=== PATIENT | male | born 1950 | race Caucasian/White ===

== ENCOUNTER 2016-08-18 19:28 | Emergency (ER) | payer OTHER ==
--- NOTE | 2016-08-18 20:59 | ED ORDER SUMMARY ---
..... Patient: CODY LOOMIS OrderSheet [facility] VisitID: [id number] [address] [place] [address] 66y, M Registration Date/Time: 08/18/2016 ORDER SHEET Weight: 92.9 kg (stated) Allergies: No Known Drug Allergy GENERAL ORDERS: CBC w Diff Urgent (19:47 08/18/2016 DDean R.N. per protocol) (19:53 ALawrence ER Tech1) UA-Culture if indicated Urgent (19:47 08/18/2016 DDean R.N. per protocol) (Ack 19:53 ALawrence ER Tech1) (20:21 DDean R.N.) CMP Urgent (19:47 08/18/2016 DDean R.N. per protocol) (19:53 ALawrence ER Tech1) US Abdomen Complete (No) Urgent (19:51 08/18/2016 HBivens A.R.N.P.) (Ack 20:00 CHagerty ER S3B Multi Sensor Operator) (Cancelled: Wrong Order20:20 NHouse ER Tech1) US Abdomen Limited (No) Urgent (20:19 08/18/2016 NHouse ER Tech1 verbal order read back to HBivens A.R.N.P.) (Ack 20:20 CHagerty ER S3B Multi Sensor Operator) (20:39 CHagerty ER S3B Multi Sensor Operator) MEDICATION ORDERS: IV FLUIDS: IV Saline Lock (19:47 08/18/2016 DDean R.N. per protocol) (19:47 DDean R.N.) ORDER SHEET NOTES: [Electronically signed by Lalita Szymanski R.N. (21:23 08/18/2016)] [Electronically signed by Erika LawR.N.P. (21:41 08/18/2016)] [Electronically locked/signed by Lalita Szymanski R.N. (21:23 08/18/2016)]
--- NOTE | 2016-08-18 20:59 | ED ORDER SUMMARY ---
..... Patient: CODY LOOMIS OrderSheet [facility] VisitID: [id number] [address] [place] [address] 66y, M Registration Date/Time: 08/18/2016 ORDER SHEET Weight: 92.9 kg (stated) Allergies: No Known Drug Allergy GENERAL ORDERS: CBC w Diff Urgent (19:47 08/18/2016 DDean R.N. per protocol) (19:53 ALawrence ER Tech1) UA-Culture if indicated Urgent (19:47 08/18/2016 DDean R.N. per protocol) (Ack 19:53 ALawrence ER Tech1) (20:21 DDean R.N.) CMP Urgent (19:47 08/18/2016 DDean R.N. per protocol) (19:53 ALawrence ER Tech1) US Abdomen Complete (No) Urgent (19:51 08/18/2016 HBivens A.R.N.P.) (Ack 20:00 CHagerty ER Mushroom Growing Supervisor) (Cancelled: Wrong Order20:20 NHouse ER Tech1) US Abdomen Limited (No) Urgent (20:19 08/18/2016 NHouse ER Tech1 verbal order read back to HBivens A.R.N.P.) (Ack 20:20 CHagerty ER Mushroom Growing Supervisor) (20:39 CHagerty ER Mushroom Growing Supervisor) MEDICATION ORDERS: IV FLUIDS: IV Saline Lock (19:47 08/18/2016 DDean R.N. per protocol) (19:47 DDean R.N.) ORDER SHEET NOTES: [Electronically signed by Lalita Szymanski R.N. (21:23 08/18/2016)] [Electronically signed by Erika LawR.N.P. (21:41 08/18/2016)] [Electronically locked/signed by Lalita Szymanski R.N. (21:23 08/18/2016)]
--- NOTE | 2016-08-18 20:59 | ED CLINICAL REPORT ---
Clinical Report - Physicians/Mid Levels [facility] [address] [place] [address] 08/18/2016 19:30 Patient: CODY LOOMIS Time Seen: 19:42; upon arrival, initial patient contact, initial documentation, patient care assumed. Arrived- By private vehicle. Historian- patient. HISTORY OF PRESENT ILLNESS Chief Complaint: ABDOMINAL PAIN. At its maximum, severity described as moderate. When seen in the E.D., severity described as moderate. Modifying factors- worsened by cough. Not relieved by anything. This started 7 - 8 years ago and is still present (worse since yesterday). It is described as "pain". No radiation. It is described as located in the periumbilical area. No nausea, loss of appetite, vomiting or diarrhea. No additional abdominal pain. (coughing yesterday and the hernia got worse, lump is bigger and hurts more, relieved with abd banding). No recent travel. Similar symptoms previously: Chronically, milder. Recent medical care: Not recently seen/assessed. REVIEW OF SYSTEMS No constipation, black stools, hematemesis, difficulty with urination or pain with urination. No urinary frequency, bloody stools, fever, chest pain or difficulty breathing. All systems otherwise negative, except as recorded above. PAST HISTORY See nurses notes. PROBLEMS: High cholesterol . HTN. Asthma. Acid reflux. --19:40 Lalita Szymanski, R.N. ADDITIONAL SURGERIES: Tonsillectomy. --19:40 Lalita Szymanski, R.N. SOCIAL HISTORY No recent travel. Is a local resident. FAMILY HISTORY Negative. ADDITIONAL NOTES The nursing notes have been reviewed with agreement regarding the chief complaint, HPI, ROS, PMH and patient medications and allergies. PHYSICAL EXAM Vital Signs: 08/18/2016 19:32 BP: 147/93. HR: 106. RR: 20. O2 saturation: 100%. Temp: 98.1 F. Pain level now: 2/10. Have been reviewed as abnormal and appear to be correct. Hypertensive. Tachycardic. Respiratory rate normal. Temperature normal. Oxygen saturation normal. Appearance: Alert. Oriented X3. No acute distress. Eyes: Pupils equal, round and reactive to light. Eyes normal inspection. Neck: Normal inspection. Neck supple. CVS: Normal heart rate and rhythm. Heart sounds normal. Pulses normal. Respiratory: No respiratory distress. Breath sounds normal. Chest nontender. Abdomen: Soft and nontender. Bowel sounds normal. No organomegaly. Small, tender mass present in the periumbilical area. No pulsatile mass present. No guarding present. Mass present. Back: Normal inspection. Skin: Skin warm and dry. Normal skin color. No rash. Normal skin turgor. Extremities: Extremities exhibit normal ROM. No lower extremity edema. Neuro: Oriented X 3. No motor deficit. No sensory deficit. LABS, X-RAYS, AND EKG Pelvic Sonogram: . 2.4cm hernia, does not reduce, verbal report from about.me. The study was discussed with the radiologist. Interpretation time: 20:39. Laboratory Tests: UA-Culture if indicated: (ROSALEE: 08/18/2016 20:15) ( [facility] 08/18/2016 20:52) Final results Test Result Flag Units (Reference) URINE COLOR YELLOW URINE APPEARANCE CLEAR URINE GLUCOSE NEGATIVE (NEGATIVE) URINE BILIRUBIN NEGATIVE (NEGATIVE) URINE KETONE NEGATIVE (NEGATIVE) URINE SPECIFIC GRAVITY 1.015 (1.010-1.030) URINE PH 6.0 (5.0-8.0) URINE PROTEIN NEGATIVE (NEGATIVE) URINE UROBILINOGEN 0.2 EU/dL (0.2-1.0) URINE NITRITE NEGATIVE (NEGATIVE) URINE BLOOD 1+ (NEGATIVE) URINE LEUK ESTERASE NEGATIVE (NEGATIVE) URINE RBC 1-3 rbc/hpf (0-1) URINE WBC NONE SEEN wbc/hpf (0-1) URINE EPITHELIAL CELLS RARE EPI/hpf (0-5) URINE BACTERIA NONE SEEN (NONE SEEN) URINE COMMENT CULT NOT INDICATED 1+MUCUSURINE CULTURES ARE SET-UP BASED ON THE FOLLOWING CRITERIA:POSITIVE NITRITEPOSITIVE LEUKOCYTE ESTERASEGREATER THAN 10 WHITE BLOOD CELLSMODERATE (2+) OR GREATER BACTERIA CBC w Diff: (ROSALEE: 08/18/2016 19:45) ( [facility] 08/18/2016 20:13) Final results Test Result Flag Units (Reference) WHITE BLOOD COUNT 12.4 H K/uL (4.5-11.5) RED BLOOD COUNT 5.47 M/uL (4.50-5.90) HEMOGLOBIN 16.2 gm/dL (13.5-17.5) HEMATOCRIT 49.2 % (41.0-53.0) MEAN CELL VOLUME 90 fL (80-100) MEAN CORPUSCULAR HGB 30 pg (26-34) MEAN CORPUSCULAR HGB CONC 33 g/dL (31-37) RED CELL DISTRIBUTION WIDTH 13.4 % (11.6-14.8) PLATELET COUNT 186 K/uL (150-400) NEUTROPHIL % 77.0 H % (50-75) LYMPH % 14.8 L % (25-40) MONO % 7.6 % (3-14) EOSINOPHIL % 0.3 % (0-4) BASOPHIL % 0.3 % (0-2) CMP: (ROSALEE: 08/18/2016 19:45) ( MsgRcvd 08/18/2016 20:08) Final results Test Result Flag Units (Reference) GLUCOSE 117 H mg/dL (70-110) BUN 15 mg/dL (7-18) CREATININE 1.4 H mg/dL (0.6-1.3) Estimated GFR 54.23 mL/min Estimated GFR- >60 mL/min Note: Persistent reduction over 3 months in eGFR<60 mL/min/1.73 m2 defines CKD. Patients with eGFR values>=60 mL/min/1.73 m2 may also have CKD if evidence ofpersistent proteinuria. Additional information may be foundat www.kidney.org. SODIUM 138 mmol/L (136-145) POTASSIUM 4.0 mmol/L (3.5-5.1) CHLORIDE 101 mmol/L (98-107) CARBON DIOXIDE 28 mmol/L (21-32) CALCIUM 9.4 mg/dL (8.5-10.1) TOTAL PROTEIN 8.0 g/dL (6.4-8.2) ALBUMIN 4.0 g/dL (3.3-5.0) BILIRUBIN, TOTAL 1.1 H mg/dL (0.0-1.0) ALKALINE PHOSPHATASE 69 U/L (46-116) AST (SGOT) 18 U/L (15-37) ALT (SGPT) 38 U/L (12-78) . PROGRESS AND PROCEDURES Course of Care: 21:40 08/18/16. us results discussed, and dc plan with dr craig. Patient counseled in person regarding the patient's stable condition, test results and diagnosis. 20:52. Differential Diagnosis: I considered hernia as a possible cause of abdominal pain in this patient. This is a partial list of diagnoses considered. (incarerated hernia). Above considerations are based on history, physical exam, laboratory data and other information. Differential diagnosis was discussed with patient. Disposition: Discharged home in good and improved condition (20:59). Condition: good and stable. CLINICAL IMPRESSION Recurrent umbilical hernia. No reducible hernia, incarcerated hernia, obstruction or gangrene. INSTRUCTIONS Warnings: GENERAL WARNINGS: Return or contact your physician immediately if your condition worsens or changes unexpectedly, if not improving as expected, or if other problems arise. SPECIFICALLY, return if you develop pain in the abdomen, fever, the inability to keep fluids down, blood in vomitus, blood in diarrhea, fainting or lightheadedness. Follow-up: Follow up with your doctor in about two days even if well. Call for an appointment. Summary of care provided to patient. Screening today revealed the patient's blood pressure to be in the hypertensive range. The patient should follow up with a primary care provider for blood pressure management. Understanding of the discharge instructions verbalized by patient. Follow-up with: Dimitri Daily MD, General Surgeon, , [facility], [address] [place] [address] Follow up in about two days as needed. Call for an appointment. Summary of care provided to patient. (Electronically signed by Erika Law A.R.N.P. 08/18/2016 21:41)
--- NOTE | 2016-08-18 20:59 | ED NURSING NOTES ---
Clinical Report - Nurses [facility] [address] [place] [address] 08/18/2016 19:30 Patient: CODY LOOMIS TRIAGE Triage time 1935. Acuity: LEVEL 3. Chief Complaint: ABDOMINAL PAIN. ( last po 1630). --19:43 Lalita Szymanski R.N. 19:32 08/18/16. BP: 147/93. HR: 106. RR: 20. O2 saturation: 100%. Temp: 98.1 F. Pain level now: 07/26. Additional comments: 2 standing, 7 if bending over . --19:43 Lalita Szymanski R.N. Weight: 92.9 kg stated. Height/Length: 68 inches Per Patient. BMI: 31.1. --19:38 Lalita Szymanski R.N. Medications Lisinopril Oral 5 mg, daily. --19:41 Lalita Szymanski R.N. Atorvastatin Calcium Oral 5mg, daily. Omeprazole Oral 20 mg, daily. --19:41 Lalita Szymanski R.N. Nightquel last night . --19:42 Lalita Szymanski R.N. Allergies No Known Drug Allergy. --19:41 Lalita Szymanski R.N. History Arrived by private vehicle. Historian: patient. Accompanied by daughter. Primary physician (samy). The patient has had abdominal pain. No nausea, vomiting, diarrhea or constipation. SOCIAL HX: Alcohol use. (quit 20 years ago). --19:43 Lalita Szymanski R.N. ( pt states that he coughing vigorously and felt "a pop" in abd by umbilicus. has bulging area visable). --19:46 Lalita Szymanski R.N. PROBLEMS: High cholesterol . HTN. Asthma. Acid reflux. --19:40 Lalita Szymanski R.N. ADDITIONAL SURGERIES: Tonsillectomy. --19:40 Lalita Szymanski R.N. Interventions ID band on patient. To treatment room. --19:43 Lalita Szymanski R.N. PHYSICAL ASSESSMENT 19:35. Ambulatory to room. Patient gowned. GENERAL / NEURO / PSYCH: Alert. Oriented X 4. Appears in no acute distress. HEENT: Mucous membranes are pink. RESPIRATORY: Respirations not labored. CVS: Capillary refill less than 2 seconds. GI / : ( had umbilical hernia pop out 2 days ago when he was coughing vigorously). SKIN: Skin is warm and dry. --19:45 Lalita Szymanski R.N. NURSING PROGRESS NOTES 19:35. Patient gowned. Head of bed elevated. Reassurance given. Patient identifiers checked. Call light placed in reach. Side rails up. Bed placed in lowest position. Patient ready for evaluation- chart flagged. --19:44 Lalita Szymanski R.N. 19:44 08/18/2016 Site #1 started via IV in the left antecubital space with an 20g angiocath, with aseptic technique and good blood return; one attempt. Blood drawn: rainbow set. Labeled in the presence of the patient and sent to the lab (drawn by DAVDIE Ashton). --19:44 Lalita Szymanski R.N. 20:15. Patient ID band checked for patient name and birthdate: patient confirmed. Clean catch urine collected with return of yellow-colored clear urine; sample sent to lab for urinalysis and culture. Specimen labeled in the presence of the patient. --20:22 Lalita Szymanski R.N. 20:15. ( Pt informed that we are waiting on US to arrive at 2030. Pt in no acute distress, playing game on phone). --20:23 Lalita Szymanski R.N. 20:30. ( US at bedside doing exam). --20:35 Lalita Szymanski R.N. 21:00 08/18/2016 Site #1 removed upon discharge. Bandaid applied. --21:22 Lalita Szymanski R.N. 21:00 08/18/2016 IV Saline Lock Drip IV Discontinued: bag #1 STOPPED upon discharge. Total amount infused: 0 mL. IV patency established. IV site checked: no pain, redness, or swelling. IV flushed thoroughly. --21:22 Lalita Szymanski R.N. DISPOSITION / DISCHARGE 21:05. Condition at departure: improved and stable. No learning barriers present. Discharge instructions provided and reviewed with the patient. Reviewed medication(s) (continue home meds). Reviewed referrals (Dr. Daily). Patient verbalized understanding. Written instructions provided in Faroese. The patient was discharged home and accompanied by family. He left the Emergency Department ambulatory and via private vehicle. Driving (daughter). --21:20 Lalita Szmyanski R.N. 21:05 08/18/16. BP: 121/80. HR: 94. RR: 18. O2 saturation: 97%. Temp: deferred. Pain level now: 07/26. --21:20 Lalita Szymanski R.N. Locked/Released at 08/18/2016 21:23 by Lalita Szymanski R.N.
--- NOTE | 2016-08-18 20:59 | ED NURSING NOTES ---
Clinical Report - Nurses [facility] [address] [place] [address] 08/18/2016 19:30 Patient: CODY LOOMIS TRIAGE Triage time 1935. Acuity: LEVEL 3. Chief Complaint: ABDOMINAL PAIN. ( last po 1630). --19:43 Lalita Szymanski R.N. 19:32 08/18/16. BP: 147/93. HR: 106. RR: 20. O2 saturation: 100%. Temp: 98.1 F. Pain level now: 07/26. Additional comments: 2 standing, 7 if bending over . --19:43 Lalita Szymanski R.N. Weight: 92.9 kg stated. Height/Length: 68 inches Per Patient. BMI: 31.1. --19:38 Lalita Szymanski R.N. Medications Lisinopril Oral 5 mg, daily. --19:41 Lalita Szymanski R.N. Atorvastatin Calcium Oral 5mg, daily. Omeprazole Oral 20 mg, daily. --19:41 Lalita Szymanski R.N. Nightquel last night . --19:42 Lalita Szymanski R.N. Allergies No Known Drug Allergy. --19:41 Lalita Szymanski R.N. History Arrived by private vehicle. Historian: patient. Accompanied by daughter. Primary physician (samy). The patient has had abdominal pain. No nausea, vomiting, diarrhea or constipation. SOCIAL HX: Alcohol use. (quit 20 years ago). --19:43 Lalita Szymanski R.N. ( pt states that he coughing vigorously and felt "a pop" in abd by umbilicus. has bulging area visable). --19:46 Lalita Szymanski R.N. PROBLEMS: High cholesterol . HTN. Asthma. Acid reflux. --19:40 Lalita Szymanski R.N. ADDITIONAL SURGERIES: Tonsillectomy. --19:40 Lalita Szymanski R.N. Interventions ID band on patient. To treatment room. --19:43 Lalita Szymanski R.N. PHYSICAL ASSESSMENT 19:35. Ambulatory to room. Patient gowned. GENERAL / NEURO / PSYCH: Alert. Oriented X 4. Appears in no acute distress. HEENT: Mucous membranes are pink. RESPIRATORY: Respirations not labored. CVS: Capillary refill less than 2 seconds. GI / : ( had umbilical hernia pop out 2 days ago when he was coughing vigorously). SKIN: Skin is warm and dry. --19:45 Lalita Szymanski R.N. NURSING PROGRESS NOTES 19:35. Patient gowned. Head of bed elevated. Reassurance given. Patient identifiers checked. Call light placed in reach. Side rails up. Bed placed in lowest position. Patient ready for evaluation- chart flagged. --19:44 Lalita Szymanski R.N. 19:44 08/18/2016 Site #1 started via IV in the left antecubital space with an 20g angiocath, with aseptic technique and good blood return; one attempt. Blood drawn: rainbow set. Labeled in the presence of the patient and sent to the lab (drawn by DAVIDE Ashton). --19:44 Lalita Szymanski R.N. 20:15. Patient ID band checked for patient name and birthdate: patient confirmed. Clean catch urine collected with return of yellow-colored clear urine; sample sent to lab for urinalysis and culture. Specimen labeled in the presence of the patient. --20:22 Lalita Szymanski R.N. 20:15. ( Pt informed that we are waiting on US to arrive at 2030. Pt in no acute distress, playing game on phone). --20:23 Lalita Szymanski R.N. 20:30. ( US at bedside doing exam). --20:35 Lalita Szymanski R.N. 21:00 08/18/2016 Site #1 removed upon discharge. Bandaid applied. --21:22 Lalita Szymanski R.N. 21:00 08/18/2016 IV Saline Lock Drip IV Discontinued: bag #1 STOPPED upon discharge. Total amount infused: 0 mL. IV patency established. IV site checked: no pain, redness, or swelling. IV flushed thoroughly. --21:22 Lalita Szymanski R.N. DISPOSITION / DISCHARGE 21:05. Condition at departure: improved and stable. No learning barriers present. Discharge instructions provided and reviewed with the patient. Reviewed medication(s) (continue home meds). Reviewed referrals (Dr. Daily). Patient verbalized understanding. Written instructions provided in Upper Sorbian. The patient was discharged home and accompanied by family. He left the Emergency Department ambulatory and via private vehicle. Driving (daughter). --21:20 Lalita Szymanski R.N. 21:05 08/18/16. BP: 121/80. HR: 94. RR: 18. O2 saturation: 97%. Temp: deferred. Pain level now: 07/26. --21:20 Lalita Szymanski R.N. Locked/Released at 08/18/2016 21:23 by Lalita Szymanski R.N.
--- NOTE | 2016-08-18 20:59 | ED CLINICAL REPORT ---
Clinical Report - Physicians/Mid Levels [facility] [address] [place] [address] 08/18/2016 19:30 Patient: CODY LOOMIS Time Seen: 19:42; upon arrival, initial patient contact, initial documentation, patient care assumed. Arrived- By private vehicle. Historian- patient. HISTORY OF PRESENT ILLNESS Chief Complaint: ABDOMINAL PAIN. At its maximum, severity described as moderate. When seen in the E.D., severity described as moderate. Modifying factors- worsened by cough. Not relieved by anything. This started 7 - 8 years ago and is still present (worse since yesterday). It is described as "pain". No radiation. It is described as located in the periumbilical area. No nausea, loss of appetite, vomiting or diarrhea. No additional abdominal pain. (coughing yesterday and the hernia got worse, lump is bigger and hurts more, relieved with abd banding). No recent travel. Similar symptoms previously: Chronically, milder. Recent medical care: Not recently seen/assessed. REVIEW OF SYSTEMS No constipation, black stools, hematemesis, difficulty with urination or pain with urination. No urinary frequency, bloody stools, fever, chest pain or difficulty breathing. All systems otherwise negative, except as recorded above. PAST HISTORY See nurses notes. PROBLEMS: High cholesterol . HTN. Asthma. Acid reflux. --19:40 Lalita Szymanski, R.N. ADDITIONAL SURGERIES: Tonsillectomy. --19:40 Lalita Szymanski, R.N. SOCIAL HISTORY No recent travel. Is a local resident. FAMILY HISTORY Negative. ADDITIONAL NOTES The nursing notes have been reviewed with agreement regarding the chief complaint, HPI, ROS, PMH and patient medications and allergies. PHYSICAL EXAM Vital Signs: 08/18/2016 19:32 BP: 147/93. HR: 106. RR: 20. O2 saturation: 100%. Temp: 98.1 F. Pain level now: 2/10. Have been reviewed as abnormal and appear to be correct. Hypertensive. Tachycardic. Respiratory rate normal. Temperature normal. Oxygen saturation normal. Appearance: Alert. Oriented X3. No acute distress. Eyes: Pupils equal, round and reactive to light. Eyes normal inspection. Neck: Normal inspection. Neck supple. CVS: Normal heart rate and rhythm. Heart sounds normal. Pulses normal. Respiratory: No respiratory distress. Breath sounds normal. Chest nontender. Abdomen: Soft and nontender. Bowel sounds normal. No organomegaly. Small, tender mass present in the periumbilical area. No pulsatile mass present. No guarding present. Mass present. Back: Normal inspection. Skin: Skin warm and dry. Normal skin color. No rash. Normal skin turgor. Extremities: Extremities exhibit normal ROM. No lower extremity edema. Neuro: Oriented X 3. No motor deficit. No sensory deficit. LABS, X-RAYS, AND EKG Pelvic Sonogram: . 2.4cm hernia, does not reduce, verbal report from [facility]. The study was discussed with the radiologist. Interpretation time: 20:39. Laboratory Tests: UA-Culture if indicated: (ROSALEE: 08/18/2016 20:15) ( [facility] 08/18/2016 20:52) Final results Test Result Flag Units (Reference) URINE COLOR YELLOW URINE APPEARANCE CLEAR URINE GLUCOSE NEGATIVE (NEGATIVE) URINE BILIRUBIN NEGATIVE (NEGATIVE) URINE KETONE NEGATIVE (NEGATIVE) URINE SPECIFIC GRAVITY 1.015 (1.010-1.030) URINE PH 6.0 (5.0-8.0) URINE PROTEIN NEGATIVE (NEGATIVE) URINE UROBILINOGEN 0.2 EU/dL (0.2-1.0) URINE NITRITE NEGATIVE (NEGATIVE) URINE BLOOD 1+ (NEGATIVE) URINE LEUK ESTERASE NEGATIVE (NEGATIVE) URINE RBC 1-3 rbc/hpf (0-1) URINE WBC NONE SEEN wbc/hpf (0-1) URINE EPITHELIAL CELLS RARE EPI/hpf (0-5) URINE BACTERIA NONE SEEN (NONE SEEN) URINE COMMENT CULT NOT INDICATED 1+MUCUSURINE CULTURES ARE SET-UP BASED ON THE FOLLOWING CRITERIA:POSITIVE NITRITEPOSITIVE LEUKOCYTE ESTERASEGREATER THAN 10 WHITE BLOOD CELLSMODERATE (2+) OR GREATER BACTERIA CBC w Diff: (ROSALEE: 08/18/2016 19:45) ( [facility] 08/18/2016 20:13) Final results Test Result Flag Units (Reference) WHITE BLOOD COUNT 12.4 H K/uL (4.5-11.5) RED BLOOD COUNT 5.47 M/uL (4.50-5.90) HEMOGLOBIN 16.2 gm/dL (13.5-17.5) HEMATOCRIT 49.2 % (41.0-53.0) MEAN CELL VOLUME 90 fL (80-100) MEAN CORPUSCULAR HGB 30 pg (26-34) MEAN CORPUSCULAR HGB CONC 33 g/dL (31-37) RED CELL DISTRIBUTION WIDTH 13.4 % (11.6-14.8) PLATELET COUNT 186 K/uL (150-400) NEUTROPHIL % 77.0 H % (50-75) LYMPH % 14.8 L % (25-40) MONO % 7.6 % (3-14) EOSINOPHIL % 0.3 % (0-4) BASOPHIL % 0.3 % (0-2) CMP: (ROSALEE: 08/18/2016 19:45) ( MsgRcvd 08/18/2016 20:08) Final results Test Result Flag Units (Reference) GLUCOSE 117 H mg/dL (70-110) BUN 15 mg/dL (7-18) CREATININE 1.4 H mg/dL (0.6-1.3) Estimated GFR 54.23 mL/min Estimated GFR- >60 mL/min Note: Persistent reduction over 3 months in eGFR<60 mL/min/1.73 m2 defines CKD. Patients with eGFR values>=60 mL/min/1.73 m2 may also have CKD if evidence ofpersistent proteinuria. Additional information may be foundat www.[email or web address].org. SODIUM 138 mmol/L (136-145) POTASSIUM 4.0 mmol/L (3.5-5.1) CHLORIDE 101 mmol/L (98-107) CARBON DIOXIDE 28 mmol/L (21-32) CALCIUM 9.4 mg/dL (8.5-10.1) TOTAL PROTEIN 8.0 g/dL (6.4-8.2) ALBUMIN 4.0 g/dL (3.3-5.0) BILIRUBIN, TOTAL 1.1 H mg/dL (0.0-1.0) ALKALINE PHOSPHATASE 69 U/L (46-116) AST (SGOT) 18 U/L (15-37) ALT (SGPT) 38 U/L (12-78) . PROGRESS AND PROCEDURES Course of Care: 21:40 08/18/16. us results discussed, and dc plan with dr craig. Patient counseled in person regarding the patient's stable condition, test results and diagnosis. 20:52. Differential Diagnosis: I considered hernia as a possible cause of abdominal pain in this patient. This is a partial list of diagnoses considered. (incarerated hernia). Above considerations are based on history, physical exam, laboratory data and other information. Differential diagnosis was discussed with patient. Disposition: Discharged home in good and improved condition (20:59). Condition: good and stable. CLINICAL IMPRESSION Recurrent umbilical hernia. No reducible hernia, incarcerated hernia, obstruction or gangrene. INSTRUCTIONS Warnings: GENERAL WARNINGS: Return or contact your physician immediately if your condition worsens or changes unexpectedly, if not improving as expected, or if other problems arise. SPECIFICALLY, return if you develop pain in the abdomen, fever, the inability to keep fluids down, blood in vomitus, blood in diarrhea, fainting or lightheadedness. Follow-up: Follow up with your doctor in about two days even if well. Call for an appointment. Summary of care provided to patient. Screening today revealed the patient's blood pressure to be in the hypertensive range. The patient should follow up with a primary care provider for blood pressure management. Understanding of the discharge instructions verbalized by patient. Follow-up with: Dimitri Daily MD, General Surgeon, , [facility], [address] [place] [address] Follow up in about two days as needed. Call for an appointment. Summary of care provided to patient. (Electronically signed by Erika Law A.R.N.P. 08/18/2016 21:41)
--- NOTE | 2016-08-18 21:41 | ED DISCHARGE INSTRUCTIONS ---
Patient: CODY LOOMIS General Instructions [facility] VisitID: [id number] [address] [place] [id number] 66y, M Registration Date/Time: 08/18/2016 Recurrent umbilical hernia. No reducible hernia, incarcerated hernia, obstruction or gangrene. INSTRUCTIONS Warnings: GENERAL WARNINGS: Return or contact your physician immediately if your condition worsens or changes unexpectedly, if not improving as expected, or if other problems arise. SPECIFICALLY, return if you develop pain in the abdomen, fever, the inability to keep fluids down, blood in vomitus, blood in diarrhea, fainting or lightheadedness. Follow-up: Follow up with your doctor in about two days even if well. Call for an appointment. Summary of care provided to patient. Screening today revealed the patient's blood pressure to be in the hypertensive range. The patient should follow up with a primary care provider for blood pressure management. Understanding of the discharge instructions verbalized by patient. Follow-up with: Dimitri Daily MD, General Surgeon, , [facility], [address] [place] [address] Follow up in about two days as needed. Call for an appointment. Summary of care provided to patient. ADDITIONAL INFORMATION Hernia [Adult] A hernia is a bulge of the intestines or surrounding tissues through a tear in the muscle of the abdomen or groin. This may occur as a result of excessive coughing, heavy lifting or being overweight. It can also occur at the site of prior surgery. When a hernia first appears it may be painful due to stretching and tearing of the muscle fibers. When you lie down, the bulge should reduce in size or disappear completely. If it does not, and you are unable to flatten it with your hand, medical attention is needed at once. Home Care: Avoid heavy lifting and straining or any activities that cause pain in the hernia. Follow Up with your physician as directed by our staff. Get Prompt Medical Attention if any of the following occur: Increasing size of the hernia Increasing pain in the hernia A hernia that does not get smaller when you lie down Hardening of the hernia Abdominal swelling, fever or repeated vomiting Pain moves to the lower right abdomen (just below the waistline) or spreads to the back You have been given the following additional information: Hernia (Inguinal, Ventral, Umbilical) (Electronically signed by Erika Law A.R.N.P. 08/18/2016 21:41)
--- NOTE | 2016-08-18 21:41 | ED MAR SUMMARY ---
..... Medication Administration Record [facility] [address] [place], [place] [id number] Patient: CODY LOOMIS Visit ID: [id number] 66y, M Weight: 92.9 kg Height/Length: 68 in BMI: 31.1 ALLERGIES: No Known Drug Allergy
--- NOTE | 2016-08-18 21:41 | ED DISCHARGE INSTRUCTIONS ---
Patient: CODY LOOMIS General Instructions [facility] VisitID: [id number] [address] [place] [id number] 66y, M Registration Date/Time: 08/18/2016 Recurrent umbilical hernia. No reducible hernia, incarcerated hernia, obstruction or gangrene. INSTRUCTIONS Warnings: GENERAL WARNINGS: Return or contact your physician immediately if your condition worsens or changes unexpectedly, if not improving as expected, or if other problems arise. SPECIFICALLY, return if you develop pain in the abdomen, fever, the inability to keep fluids down, blood in vomitus, blood in diarrhea, fainting or lightheadedness. Follow-up: Follow up with your doctor in about two days even if well. Call for an appointment. Summary of care provided to patient. Screening today revealed the patient's blood pressure to be in the hypertensive range. The patient should follow up with a primary care provider for blood pressure management. Understanding of the discharge instructions verbalized by patient. Follow-up with: Dimitri Daily MD, General Surgeon, , [facility], [address] [place] [address] Follow up in about two days as needed. Call for an appointment. Summary of care provided to patient. ADDITIONAL INFORMATION Hernia [Adult] A hernia is a bulge of the intestines or surrounding tissues through a tear in the muscle of the abdomen or groin. This may occur as a result of excessive coughing, heavy lifting or being overweight. It can also occur at the site of prior surgery. When a hernia first appears it may be painful due to stretching and tearing of the muscle fibers. When you lie down, the bulge should reduce in size or disappear completely. If it does not, and you are unable to flatten it with your hand, medical attention is needed at once. Home Care: Avoid heavy lifting and straining or any activities that cause pain in the hernia. Follow Up with your physician as directed by our staff. Get Prompt Medical Attention if any of the following occur: Increasing size of the hernia Increasing pain in the hernia A hernia that does not get smaller when you lie down Hardening of the hernia Abdominal swelling, fever or repeated vomiting Pain moves to the lower right abdomen (just below the waistline) or spreads to the back You have been given the following additional information: Hernia (Inguinal, Ventral, Umbilical) (Electronically signed by Erika Law A.R.N.P. 08/18/2016 21:41)
--- NOTE | 2016-08-18 21:41 | ED MAR SUMMARY ---
..... Medication Administration Record [facility] [address] [place], [place] [id number] Patient: CODY LOOMIS Visit ID: [id number] 66y, M Weight: 92.9 kg Height/Length: 68 in BMI: 31.1 ALLERGIES: No Known Drug Allergy
--- NOTE | 2016-08-18 21:42 | ED MED RECONCILIATION SUMMARY ---
Patient: CODY LOOMIS Medication Reconciliation Report [facility] VisitID: [id number] [address] [place] [address] 66y, M Registration Date/Time: 08/18/2016 Weight: 92.9 kg Height/Length: 68 in. BMI: 31.1 ALLERGIES: No Known Drug Allergy The patient's Home Medications are listed below: THE FOLLOWING MEDICATIONS NEED TO BE RECONCILED: Atorvastatin Calcium Oral 5mg, daily Lisinopril Oral 5 mg, daily Nightquel last night Omeprazole Oral 20 mg, daily The source(s) of the original Home Medication information: Not obtained. The following Medications were given to the patient in the Emergency Department: None. The following Medications were prescribed to the patient: None.
--- NOTE | 2016-08-18 21:42 | ED MED RECONCILIATION SUMMARY ---
Patient: CODY LOOMIS Medication Reconciliation Report [facility] VisitID: [id number] [address] [place] [address] 66y, M Registration Date/Time: 08/18/2016 Weight: 92.9 kg Height/Length: 68 in. BMI: 31.1 ALLERGIES: No Known Drug Allergy The patient's Home Medications are listed below: THE FOLLOWING MEDICATIONS NEED TO BE RECONCILED: Atorvastatin Calcium Oral 5mg, daily Lisinopril Oral 5 mg, daily Nightquel last night Omeprazole Oral 20 mg, daily The source(s) of the original Home Medication information: Not obtained. The following Medications were given to the patient in the Emergency Department: None. The following Medications were prescribed to the patient: None.
--- NOTE | 2016-08-18 21:43 | DIAGNOSTIC IMAGING REPORT ---
PROCEDURE: US ABDOMEN ULTRASOUND-LIMITED INDICATION: UMBILICAL HERNIA TECHNIQUE: Choi scale and color Doppler sonographic images were obtained of the umbilical region COMPARISON: None. FINDINGS: There is a nodule of heterogeneous hyperechoic material herniated through a fascial defect in the umbilical region. There is what appears to be a small amount of fluid within the hernia sac. The hernia sac measures about 2.4 cm in transverse diameter. There is shadowing obscures the size of the fascial defect. The hernia does not reduce with direct pressure during the exam. No peristalsis was seen within the herniated structures. IMPRESSION: 1. 2.4 cm umbilical hernia which appears to contain incarcerated fat and a small amount of fluid. No definite bowel structures are seen in the hernia sac. 2. Findings discussed with Erika Law in the emergency room.
== END 2016-08-18 21:05 | disposition home or self-care (01) ==
LOC: ED SRH 19:28
DX: K42.9 Umbilical hernia without obstruction or gangrene (principal); I10 Essential (primary) hypertension; Z79.899 Other long term (current) drug therapy
CPT/HCPCS: 90004; 90100; 95059